=== PATIENT | female | born 1970 | race Caucasian/White ===

== ENCOUNTER 2021-01-19 22:32 | Emergency (ER) | payer BC, SELFPAY ==
[2021-01-19 22:56] VITALS: BP 136/88; PULSE 76; RESP 17; TEMP 36.4; O2SAT 97
--- NOTE | 2021-01-19 22:57 | ED.GENADULT ---
HPI - General Adult General Chief complaint: Unspecified Stated complaint: pain & red streak down arm after blood donation Source: patient and family History of Present Illness HPI narrative: this is a 50-year-old female presents after she donated blood yesterday the area of erythema that is in her right arm that is warm tender with no fever chills has a good brisk radial pulse on the right with no shortness of breath no chest pain. Onset (ago): day(s) Location: upper extremity ( red streak in right upper arm) Severity: mild Quality: burning Related Data Home Medications Medication Instructions Recorded Confirmed levothyroxine 100 mcg PO DAILY 01/19/21 01/19/21 progesterone micronized 100 mg PO DIRECTED 01/19/21 01/19/21 testosterone cypionate 200 mg IM DIRECTED 01/19/21 01/19/21 Allergies Allergy/AdvReac Type Severity Reaction Status Date / Time No Known Allergies Allergy Unknown Verified 01/19/21 22:54 Review of Systems Review of Systems: All systems reviewed & are unremarkable except as noted in HPI and below PMFSH Past Medical History Medical History Hypothyroidism (acquired) Exam Const: General: cooperative, healthy appearing, comfortable, no acute distress and well developed HENMT: Head: normal to inspection Ears: hearing grossly normal bilaterally General nose exam: Normal external nose present Face and sinus: normal facial exam and sinuses nontender Mouth: Yes Normal oral and palatal mucosa present Eyes: General: appearance normal, both eyes and all related structures Visual Rodriguez: normal visual rodriguez by confrontation EOM: EOMs intact bilaterally Neck: Neck: normal visual inspection, full ROM, no lymphadenopathy and no meningeal signs Chest: Chest palpation & inspection: normal inspection of the chest and normal palpation of entire chest wall Resp: Effort & Inspection: normal respiratory effort and able to speak in complete sentences Auscultation: clear to auscultation bilaterally Cardio: Jugular venous distension: no JVD Palpation: normal PMI Rate: regular rate Rhythm: regular rhythm GI: Inspection: normal to inspection Urinary Catheter: Urinary Catheter: patent and draining Back/Spine/Pelvis: Back: no CVA tenderness Skin: General skin exam: normal color and no rashes or lesions noted Other: area of erythema right upper arm Neuro: General: oriented to person, oriented to place, oriented to time and patient oriented x3 Course Course Emergency Course: patient doing well has an area of erythema and will obtain give the patient g of IM ceftriaxone Critical Care Time Critical Care Time Critical Care Time: No Discharge Plan Discharge Clinical Impression: Cellulitis Qualifiers: Site of cellulitis: extremity Site of cellulitis of extremity: upper extremity Laterality: right Qualified Code(s): L03.113 - Cellulitis of right upper limb Patient Disposition: Home, Self-Care Condition: Stable Instructions: Antibiotic Form, Cellulitis (ED) Additional Instructions: take medicine as prescribed, can use Tylenol or Motrin for pain inflammation as well as warm compress to affected area, follow primary care physician if symptoms persist or worsen. Prescriptions: New amoxicillin-pot clavulanate [Augmentin] 875-125 mg tablet 1 tablet PO Q12H Qty: 20 RF: 0 No Action levothyroxine 100 mcg tablet 100 mcg PO DAILY RF: 0 testosterone cypionate 200 mg/mL oil 200 mg IM DIRECTED RF: 0 progesterone micronized 100 mg capsule 100 mg PO DIRECTED RF: 0 Follow-up/Referrals: Markus Cueva MD [Primary Care Provider] - Time of Disposition: 23:02
[2021-01-19] MEDS: cefTRIAXone 1 GM VIAL IM (23:13)
[2021-01-19] MEDS: LIDOCAINE HCL 1% LOCAL INJ 20 ML VIAL (23:17)
[2021-01-19 23:40] VITALS: BP 97/68; PULSE 62; RESP 17; O2SAT 98
== END 2021-01-19 23:42 | disposition home or self-care (01) ==
PROVIDERS: Emergency Provider Emergency Medicine; PCP Internal Medicine
DX: L03.113 Cellulitis of right upper limb (principal)
CPT/HCPCS: 96372; 99283; J0696

== ENCOUNTER 2022-10-21 21:55 | Emergency (ER) | payer BC, SELFPAY ==
[2022-10-21 21:55] VITALS: BP 131/88; PULSE 81; RESP 14; TEMP 36.8; O2SAT 98
--- NOTE | 2022-10-21 22:02 | ED.ANIMALBIT ---
HPI - Animal Bite General Chief Complaint: Animal Bite Stated Complaint: cat bite to right hand Time Seen by Provider: 10/21/22 22:02 Source: patient and RN notes reviewed Mode of arrival: ambulatory Limitations: no limitations History of Present Illness complaint: animal bite Onset (ago): hour(s) (7) Animal: cat Description of animal: household pet Mechanism: bite Location - Extremities: Right: hand Pain description: dull Severity scale (1-10): 4 Context: playing with animal Associated symptoms: none Treatments prior to arrival: irrigation and antibiotic ointment Related Data Patient tetanus UTD: Yes Home Medications Medication Instructions Recorded Confirmed thyroid (pork) 120 mg tablet 120 mg PO DAILY 03/18/22 10/21/22 ([place] Thyroid) Allergies Allergy/AdvReac Type Severity Reaction Status Date / Time No Known Allergies Allergy Unknown Verified 05/06/22 11:26 Review of Systems Review of Systems: All systems reviewed & are unremarkable except as noted in HPI and below PMFSH Past Medical History Medical History Gestational diabetes Hypothyroidism (acquired) [place] thyroid & adrenal gland RX MEDS Screening mammogram for breast cancer Surgical History Surgical History History of hysteroscopy (~02/19/99) DX HSCOPE, POLYPECTOMY, D&C, DX LAP, ADHESIOLYSIS, ABLATION OF ENDOMETRIOSIS, RIGHT OVARIAN -CYSTECTOMY & CHROMOPERTUBATION - infertility, endometriosis, pelvic endometriosis, right ovarian cyst - corpus luteum ruptured - right ovary History of hysteroscopy (06/07/09) HSCOPE, D&C, MULTIPLE POLYPECTOMY - benign endometrial polyps History of hysteroscopy (06/30/11) NOVASURE ENDOMETRIAL ABLATION HSCOPE D&C - benign Family History Family History Mother Heart disease Hypertension Father Hypertension Grandparent Diabetes mellitus Social History Social History Smoking status: Never smoker Alcohol intake: current Alcohol use details: 2-3 month Substance use: never Substance use type: does not use Living arrangements: other Additional living arrangements comments: Occupation/Education: occupation Additional occupation/education comments: court worker Gender identity (if verbalized by the patient): Female Sexual Orientation (if Verbalized by the Patient): Straight or Heterosexual Exam Const: General: healthy appearing, no acute distress and alert Nutritional Appearance: well nourished Orientation/consciousness: patient oriented x3 Limitations: no limitations HENMT: Head: normal to inspection Ears: external ears normal Face/Nose/Sinus: Normal external nose present Face and sinus: normal facial exam Mouth: Yes moist mucous membranes Eyes: Conjunctivae: conjunctivae normal Pupils: Equal, round and reactive pupils present EOM: EOMs intact bilaterally Neck: Neck: normal visual inspection Resp: Effort & Inspection: normal respiratory effort Auscultation: clear to auscultation bilaterally Cardio: Rate: regular rate Rhythm: regular rhythm GI: GI Palp: Yes Soft to palpation and No Tenderness to palpation present (GI) Auscultation: normal bowel sounds Back/Spine/Pelvis: Cervical Spine: cervical ROM normal Thoracic/Lumbar Spine: thoraco-lumbar ROM normal Skin: General skin exam: normal color Wounds: wounds noted (3 small puncture wounds at the base of the right thumb on the dorsal aspect) puncture wound right thumb with surrounding erythema Neuro: General: patient oriented x3, moves all extremities, no focal motor deficits and CN's II-XI intact bilaterally Speech: normal speech Gait exam (Neuro): Normal gait present MDM - Animal Bite Differential Diagnosis Differential diagnosis: Likely cat bite and other ( Bartonella, MRSA) Discharge Carie
--- NOTE | 2022-10-21 22:07 | PC.NURSE ---
Assisted Dr. Iqbal w/ initial pt eval
[2022-10-21] MEDS: AZITHROMYCIN 250 MG TABLET 500 MG PO (22:18)
--- NOTE | 2022-10-21 22:35 | PC.NURSE ---
[id number] typewriter faxed animal bite report to [facility].
== END 2022-10-21 22:25 | disposition home or self-care (01) ==
LOC: CHSED 22:16
PROVIDERS: Emergency Provider Emergency Medicine; PCP Internal Medicine
DX: S61.451A Open bite of right hand, initial encounter (principal); E03.9 Hypothyroidism, unspecified; W55.01XA Bitten by cat, initial encounter
CPT/HCPCS: 99283; A9270

== ENCOUNTER 2024-05-01 03:39 | Emergency (ER) | payer OTHER, SELFPAY ==
[2024-05-01] VITALS (43 sets, daily range): BP systolic 93–117; BP diastolic 49–82; PULSE 32–82; RESP 12–32; TEMP 36.1–36.8; O2SAT 91–100
--- NOTE | ~2024-05-01 | CT_ITS ---
CLINICAL INDICATION: Lower right-sided abdominal pain COMPARISON: None. TECHNIQUE: Multiple contiguous axial images of the abdomen and pelvis were performed following the ad ministration of with 100 mL Omnipaque-350 intravenous contrast The dose-length product (DLP) was 468.09 mGy-cm. Automated exposure control and iterative reconstruction technique were employed. FINDINGS/OBSERVATIONS: Visualized lower thorax: The bilateral lung bases are clear. The heart is of normal size, without pericardial effusion. Small hiatal hernia is present. Liver: The liver demonstrates homogeneous enhancement and is not enlarged measuring 17 cm in longitudinal di mension. Gallbladder and biliary system: The gallbladder is only minimally distended, and otherwise unremarkable. Pancreas: The pancreas enhances homogeneously without ductal dilatation. Spleen: The spleen enhances homogeneously and is not enlarged measuring 8 cm in longitudinal dimension. Kidneys: The bilateral kidneys enhance symmetrically without hydronephrosis or renal calculi. Adrenal glands: Unremarkable. Gastrointestinal tract: Mural thickening and edema within the entirety of the colon, to the level of the rectum with surround ing inflammatory change for which a near complete Cardoso colitis is suspected. Appendix: The air-filled appendix is of normal caliber (axial series, images 133 through 148) Vasculature: Unremarkable. Lymph nodes: No pathologically enlarged or morphologically suspicious lymph nodes within the retroperitoneum or at the root of the mesentery. Pelvic structures: The bladder is only minimally distended, and otherwise unremarkable. The uterus is anteverted and anteflexed. Multiple rounded foci of decreased attenuation within the ut erus for which fibroids are suspected. Body wall and musculoskeletal: Small fat-containing umbilical hernia. Degenerative disease at the level of L5/S1 with osteophyte formation and disc space bulging. No acute compression fractures are appreciated. IMPRESSION: Findings suggesting a near complete pancolitis, as detailed above. Multiple rounded lucencies within the uterus for which fibroids are suspected. Follow-up pelvic ultra sound is recommended when the patient is clinically able for confirmation. Reviewed, dictated and finalized at location A. IMPRESSION: Findings suggesting a near complete pancolitis, as detailed above. Multiple rounded lucencies within the uterus for which fibroids are suspected. Follow-up pelvic ultrasound is recommended when the patient is clinically able for confirmation.
--- NOTE | ~2024-05-01 | CT_ITS ---
History: Unresponsiveness, now resolved. PROCEDURE: CT head without contrast. COMPARISON: Reference is made to CT examination of the sinuses dated 01/06/2011 TECHNIQUE: Axial imaging of the head performed from the skull base to the vertex without IV contrast. Sagittal a nd coronal reformations obtained. DLP: 605 mGy-cm FINDINGS: The ventricles are normal in size, shape and position. There is no mass, mass effect or midline shift. There is no abnormal extra-axial fluid collection or intracranial hemorrhage. Redemonstration of moderate inflammatory change within the bilateral maxillary sinuses, unchanged fro 2010. Remaining paranasal sinuses are otherwise clear. The mastoid air cells are well aerated. No acute displaced fractures within the overlying cranium. Impression: No acute intracranial hemorrhage or suspicious mass effect. Inflammatory sinus disease, unchanged from 2010. Reviewed, dictated and finalized at location A. Impression: No acute intracranial hemorrhage or suspicious mass effect. Inflammatory sinus disease, unchanged from 2010.
--- OUTSIDE RECORDS SUMMARY | 2024-05-01 03:42 | XMS_ITS | Referral Summary ---
Author Organization [facility] [facility] Address [address] [place] [id number] Care Team Providers Care Customer Service Dispatcher Name Role Phone Markus Cueva MD Primary Care Provider [phone] Allergies Active Allergy Reactions Criticality Noted Date Comments Hydrocodone Stomach upset Low 11/30/2014 Stomach/GI Upset Medications levothyroxine sodium (TIROSINT) 13 mcg capsule take 1 capsule by oral route every day 0 0 03/04/2016 Active estradioL (Estrace) 0.01 % (0.1 mg/gram) vaginal cream Estrace 0.01% (0.1 mg/gram) vaginal cream Active progesterone (PROMETRIUM) 100 mg capsule 07/17/2020 Acti ve Active Problems Problem Noted Date Diagnosed Date Screening for colon cancer 09/30/2021 Overview (09/30/2021): Added automatically from request for surgery [id number] Irregular periods 07/19/2020 Social History Tobacco Use Types Packs/Day Years Used Date Smoking Tobacco: Unknown Tobacco Cessation:Counseling Given: Not Answered Alcohol Use Standard Drinks/Week Comments No 0 (1 standard drink = 0.6 oz pur e alcohol) Comments Unknown Sex and Gender Information Value Date Recorded Sex Assigned at Not on file 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 Gender Identity Not on file Sexual Orientation Not on file Last Filed Vital Signs Vital Sign Reading Time Taken Comments Blood Pressure 111/61 10/17/2021 10:03 AM CDT Pulse 55 10/17/2021 10:03 AM CDT Temperature 36.6 C (97.8 F) 10/17/2021 10:03 AM CDT Respiratory Rate 16 10/17/2021 10:03 AM CDT Oxygen Saturation 100% 10/17/2021 10:03 AM CDT Inhaled Oxygen Concentration - - Weight 68 kg (150 lb) 10/17/2021 7:22 AM CDT Height 160 cm (5' 3 ) 10/17/2021 7:22 AM CDT Body Mass Index 26.57 10/17/2021 7:22 AM CDT Plan of Treatment Not on file Procedures Procedure Name Priority Date/Time Associated Diagnosis Comments COLONOSCOPY 10/17/2021 7:16 AM CDT from Last 3 Months or Most Recently Relevant to Health Maintenance Results * COLONOSCOPY (10/17/2021 7:16 AM CDT) Anatomical Region Laterality Modality Other Narrative Procedure Note Munir Mckeon MD - 10/17/2021 7:16 AM CDT Center Patient Name: Keesha Hoskins Procedure Date: 10/17/2021 7:16 AM Date of : 1970 Admit Type: Outpatient Age: 51 Gender: Female Attending MD: Munir Mckeon M.D. Room: [facility] ENDOSCOPY ROOM 1 Note Status: Finalized Patient Profile: This is a 51 year old female no pmhx here forinitial colonoscopy. no family hx of colon cancer Procedure: Colonoscopy Indications: Screening for colorectal malignant neoplasm, Thisis the patient's first colonoscopy Referring MD: Markus Cueva M.D. Providers: Munir Mckeon M.D. Impression: - Perianal skin tags found on perianal exam. - One 4 mm polyp in the rectum, removed with a cold snare. Resected and retrieved. - Internal hemorrhoids. Recommendation: - Patient has a contact number available for emergencies. The signs and symptoms of potential delayed complications were discussed with thepatient. Return to normal activities tomorrow. Written discharge instructions were provided to thepatient. - Discharge patient to home (with escort). - High fiber diet. - Use original regular Metamucil one teaspoon POTID. Can also use over the counter anusol or preparationH for hemorrhoids as needed - Await pathology results. - Repeat colonoscopy in 7-10 years for surveillance based on pathology results. - Return to primary care physician as previously scheduled. Medicines: Monitored Anesthesia Care Complications: No immediate complications. Estimated Blood Loss: Estimated blood loss was minimal. Procedure: Pre-Anesthesia Assessment: - Prior to the procedure, a History and Physicalwas performed, and patient medications and allergieswere reviewed. The patient is competent. The risks and benefits of the procedure and the sedation optionsand risks were discussed with the patient. Allquestions were answered and informed consent was obtained. Patient identification and proposed procedure were verified by the physician, the nurse and the anesthesiologist in the endoscopy suite. MentalStatus Examination: normal. Prophylactic Antibiotics: The patient does not require prophylactic antibiotics. Prior Anticoagulants: The patient has taken no anticoagulant or antiplatelet agents. ASA Grade Assessment: II - A patient with mild systemicdisease. After reviewing the risks and benefits, the patient was deemed in satisfactory condition to undergo the procedure. The anesthesia plan was to use monitored anesthesia care (MAC). Immediately prior to administration of medications, the patient was re-assessed for adequacy to receive sedatives. The heart rate, respiratory rate, oxygen saturations, blood pressure, adequacy of pulmonary ventilation,and response to care were monitored throughout the procedure. The physical status of the patient was re-assessed after the procedure. The benefits, risks and alternatives of theprocedure and sedation were discussed and informed consentwas obtained. All questions were answered. Please referto the signed informed consent document in the medical record. The bowel preparation used was Miralax and bisacodyl tablets via split dose instruction. The scope was passed under direct vision. TheColonoscope [id number] was introduced through the anus and advanced to the the cecum, identified by appendiceal orifice and ileocecal valve. The colonoscopy was somewhat difficult due tosignificant looping. Successful completion of the procedure was aided by applying abdominal pressure. The patient tolerated the procedure well. The quality of thebowel preparation was adequate. Bowel prep wasadministered using a split dose. Findings: Skin tags were found on perianal exam. A 4 mm polyp was found in the rectum. The polyp was Parisclassification IIa (superficial, elevated). The polyp was removed with a cold snare. Resection and retrieval were complete. Internal hemorrhoids were found during retroflexion. Munir Mckeon M.D. 10/17/2021 9:37:07 AM Number of Addenda: 0 Note Initiated On: 10/17/2021 7:16 AM Procedure Code(s): --- Professional --- 04349, Colonoscopy, flexible; with removal of tumor(s), polyp(s), or other lesion(s) by snare technique Diagnosis Code(s): --- Professional --- Z12.11, Encounter for screening for malignant neoplasm of colon D12.8, Benign neoplasm of rectum K64.8, Other hemorrhoids K64.4, Residual hemorrhoidal skin tags CPT copyright 2020 [employer]. All rights reserved. The codes documented in this report are preliminary and upon production miner reviewmay be revised to meet current compliance requirements. Recognized by the [employer] for promoting quality in endoscopy us Munir Mckeon MD ENDOSCOPY PROCEDURES Final Resul t from Last 3 Months or Most Recently Relevant to Health Maintenance Insurance [facility] Advance Directives For more information, please contact: [phone] * Full Code (Latest Code Status on File) Date Activated Date Inactivated Comments 10/17/2021 7:27 AM 10/17/2021 2:29 PM * Full Code Date Activated Date Inactivated Comments 10/17/2021 7:27 AM 10/17/2021 7:27 AM Care Teams Customer Service Dispatcher Relationship Specialty Start Date End Date Markus Cueva MD PCP - General Internal Medicine 07/19/20
--- OUTSIDE RECORDS SUMMARY | 2024-05-01 03:43 | XMS_ITS | Clinical Summary ---
Author Organization [facility] [place] [facility] Address [address] [place] [id number] Care Team Providers Care Legal Officer Name Role Phone Markus Cueva MD Primary Care Provider [phone] Allergies Active Allergy Reactions Criticality Noted Date [...] (09/30/2021): Added automatically from request for surgery [id number] Irregular periods 07/19/2020 Surgical History Surgery Date Site/Laterality Comments TONSILLECTOMY Tonsillectomy COLONOSCOPY 10/17/2021 Medical History Medical History Date Comments Hx Other Medical kidney stones Disorder of thyroid Thyroid dise ase Hx Other Medical right foot nov 2014 Hx Other Medical Left foot-bone spurs Jan 2013 Hx Other Medical Diastesis repai r Nov 2014 Hx Other Medical reproductive is sues 1999 Family History Medical History Relation Name Comments Arthritis Other 1 Family history of Arthritis; Gout Other 2 Family history of Gout; Hypertension Other 3 Family history of Hypertension; Diabetes type II Other 4 Family hist ory of Diabetes mellitus type 2; Heart disease Other 5 Family history of Heart disease; Relation Name Status Comments Other 1 Other 2 Other 3 Other 4 Other 5 Social History Tobacco Use Types Packs/Day Years Used Date Smoking Tobacco: Unknown Tobacco Cessation:Counseling Given: Not Answered Alcohol Use Standard Drinks/Week Comments No 0 (1 standard drink = 0.6 oz pur e alcohol) Comments Unknown Sex and Gender Information Value Date Recorded Sex Assigned at Not on file 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 Gender Identity Not on file Sexual Orientation Not on file Obstetrics History Last Filed Vital Signs Vital Sign Reading [...] 10/17/2021 7:22 AM CDT Plan of Treatment Health Maintenance Due Date Last Done Comments Breast Cancer Screening-Mammogram 1970 Cervical Cancer Screening 1970 Depression Screening 1970 Hepatitis C Screening 1970 Hepatitis B Screening 1988 Regular Well Visit/Exam 18-64 1988 Zoster Vaccine (1 of 2) 2020 Influenza Vaccine (#1) 2023 10/21/2018 DTaP/Tdap/Td Vaccine (2 - Td or Tdap) 10/21/2028 10/21/2018 Colon Cancer Screening-Colonoscopy 10/18/20312021 Pneumococcal vaccine <65 Aged Out No longer eligible based on patient's age to complete this topic Procedures Procedure Name Priority Date/Time Associated Diagnosis Comments COLONOSCOPY 10/17/2021 7:16 AM CDT from Last 3 Months or Most Recently Relevant to Health Maintenance Results * COLONOSCOPY (10/17/2021 7:16 AM CDT) Anatomical Region Laterality Modality Other Narrative Procedure Note Munir Mckeon MD - 10/17/2021 7:16 AM CDT [facility] Center Patient Name: Keesha Bustillo Procedure Date: 10/17/2021 7:16 AM Date of : 1970 Admit Type: Outpatient Age: 51 Gender: Female Attending MD: Munir Mckeon M.D. Room: [facility] RO[facility] 1 Note Status: Finalized Patient [...] scope was passed under direct vision. TheColonoscope [id number] was introduced through the anus and advanced [...] 7:16 AM Procedure Code(s): --- Professional --- 87187, Colonoscopy, flexible; with removal of tumor(s), polyp(s), or other lesion(s) by snare technique Diagnosis Code(s): --- Professional --- Z12.11, Encounter for screening for malignant neoplasm of colon D12.8, Benign neoplasm of rectum K64.8, Other hemorrhoids K64.4, Residual hemorrhoidal skin tags CPT copyright 2020 [employer]. All rights reserved. The codes documented in this report are preliminary and upon cardiograph operator reviewmay be revised to meet current compliance requirements. Recognized by the [employer] for promoting quality in endoscopy Munir Mckeon MD ENDOSCOPY PROCEDURES Final Resul t from Last 3 Months or Most Recently Relevant to Health Maintenance Insurance [facility] Advance Directives For more information, please contact: [phone] * Full Code (Latest Code Status on File) Date Activated Date Inactivated Comments 10/17/2021 7:27 AM 10/17/2021 2:29 PM * Full Code Date Activated Date Inactivated Comments 10/17/2021 7:27 AM 10/17/2021 7:27 AM Care Teams Legal Officer Relationship Specialty Start Date End Date Markus Cueva MD PCP - General Internal Medicine 07/19/20
--- NOTE | 2024-05-01 03:52 | ED.ABDPAIN ---
HPI - Abdominal Pain General Chief Complaint: Abdominal Pain <Michael Mccray MD - Last Filed: 05/01/24 06:16> Stated Complaint: Belly Pain <Michael Mccray MD - Last Filed: 05/01/24 06:16> Time Seen by Provider: 05/01/24 03:46 <Michael Mccray MD - Last Filed: 05/01/24 06:16> Source: patient and family <Michael Mccray MD - Last Filed: 05/01/24 06:16> Mode of arrival: ambulatory <Michael Mccray MD - Last Filed: 05/01/24 06:16> Limitations: no limitations <Michael Mccray MD - Last Filed: 05/01/24 06:16> History of Present Illness HPI narrative: this is a 53-year-old female with history of hypothyroidism presents with abdominal pain localizing to the right lower quadrant that started around 12 30 this this morning with associated nausea with currently no vomiting, there is no diarrhea or constipation no fever chills no chest pain or shortness of breath. <Michael Mccray MD - Last Filed: 05/01/24 06:16> MD elicited complaint: abdominal pain <Michael Mccray MD - Last Filed: 05/01/24 06:16> Onset (ago): hour(s) <Michael Mccray MD - Last Filed: 05/01/24 06:16> Pain Consistency: constant <Michael Mccray MD - Last Filed: 05/01/24 06:16> Location: RLQ <Michael Mccray MD - Last Filed: 05/01/24 06:16> Severity: mild <Michael Mccray MD - Last Filed: 05/01/24 06:16> Quality: aching <Michael Mccray MD - Last Filed: 05/01/24 06:16> Radiation: RLQ <Michael Mccray MD - Last Filed: 05/01/24 06:16> Migration to: no migration <Michael Mccray MD - Last Filed: 05/01/24 06:16> Exacerbating factors: nothing <Michael Mccray MD - Last Filed: 05/01/24 06:16> Relieving factors: nothing <Michael Mccray MD - Last Filed: 05/01/24 06:16> Associated symptoms: nausea <Michael Mccray MD - Last Filed: 05/01/24 06:16> Related Data Home Medications: Home Medications ?Medication ?Instructions ?Recorded ?Confirmed ?Last Taken ?Type thyroid (pork) 120 mg tablet 60 mg PO DAILY 05/11/23 05/01/24 Unknown History ([place] Thyroid) <Michael Mccray MD - Last Filed: 05/01/24 06:16> Allergies/Adverse Reactions: Allergies Allergy/AdvReac Type Severity Reaction Status Date / Time No Known Allergies Allergy Unknown Verified 05/01/24 03:48 <Michael Mccray MD - Last Filed: 05/01/24 06:16> Review of Systems Review of Systems: All systems reviewed & are unremarkable except as noted in HPI and below <Michael Mccray MD - Last Filed: 05/01/24 06:16> PMFSH Past Medical History Medical History: Medical History Screening mammogram for breast cancer Gestational diabetes Hypothyroidism (acquired) Conesus's thyroid & adrenal gland RX MEDS <Michael Mccray MD - Last Filed: 05/01/24 06:16> Surgical History Surgical History: Surgical History History of hysteroscopy (06/30/11) NOVASURE ENDOMETRIAL ABLATION HSCOPE D&C - benign History of hysteroscopy (06/07/09) HSCOPE, D&C, MULTIPLE POLYPECTOMY - benign endometrial polyps History of hysteroscopy (~02/19/99) DX HSCOPE, POLYPECTOMY, D&C, DX LAP, ADHESIOLYSIS, ABLATION OF ENDOMETRIOSIS, RIGHT OVARIAN -CYSTECTOMY & CHROMOPERTUBATION - infertility, endometriosis, pelvic endometriosis, right ovarian cyst - corpus luteum ruptured - right ovary <Michael Mccray MD - Last Filed: 05/01/24 06:16> Family History Family History: Family History Mother Heart disease Hypertension Father Hypertension Grandparent Diabetes mellitus <Michael Mccray MD - Last Filed: 05/01/24 06:16> Social History Social History: Social History Smoking status: Never smoker Second hand tobacco smoke exposure: No Alcohol intake: current Alcohol use details: 2-3 month Substance use: never Substance use type: does not use Do You Feel Safe in your Home?: Yes Lack of Transportation: No Lack of Food: Never True Current Housing: I Have Housing Concerned About Future Housing: No Difficulty Paying Gas/Electric Bills: No Difficulty Paying for Meds: No Currently Unemployed: No Education: Trade/Vocational Certificate Difficulty w/ Childcare or Family Care: No Living arrangements: other Additional living arrangements comments: Occupation/Education: 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 Gender identity (if verbalized by the patient): Female Sexual Orientation (if Verbalized by the Patient): Straight or Heterosexual <Michael Mccray MD - Last Filed: 05/01/24 06:16> Exam Const: General: no acute distress and ill appearing <Michael Mccray MD - Last Filed: 05/01/24 06:16> Nutritional Appearance: well nourished <Michael Mccray MD - Last Filed: 05/01/24 06:16> Orientation/consciousness: patient oriented x3 <Michael Mccray MD - Last Filed: 05/01/24 06:16> Limitations: no limitations <Michael Mccray MD - Last Filed: 05/01/24 06:16> HENMT: Head: normal to inspection <Michael Mccray MD - Last Filed: 05/01/24 06:16> Neck: Neck: normal visual inspection, no lymphadenopathy and no meningeal signs <Michael Mccray MD - Last Filed: 05/01/24 06:16> Chest: Chest palpation & inspection: normal inspection of the chest <Michael Mccray MD - Last Filed: 05/01/24 06:16> Resp: Effort & Inspection: normal respiratory effort <Michael Mccray MD - Last Filed: 05/01/24 06:16> Auscultation: clear to auscultation bilaterally <Michael Mccray MD - Last Filed: 05/01/24 06:16> Cardio: Rate: regular rate <Michael Mccray MD - Last Filed: 05/01/24 06:16> Rhythm: regular rhythm <Michael Mccray MD - Last Filed: 05/01/24 06:16> GI: GI Palp: Yes Soft to palpation and Yes Tenderness to palpation present (GI) <Michael Mccray MD - Last Filed: 05/01/24 06:16> Auscultation: normal bowel sounds <Michael Mccray MD - Last Filed: 05/01/24 06:16> : General: Yes bladder normal to palpation <Michael Mccray MD - Last Filed: 05/01/24 06:16> Urinary Catheter: Urinary Catheter: patent and draining <MD Jackelin Clay Last Filed: 05/01/24 06:16> Back/Spine/Pelvis: Back: no CVA tenderness <Michael Mccray MD - Last Filed: 05/01/24 06:16> Skin: General skin exam: normal color <Michael Mccray MD - Last Filed: 05/01/24 06:16> Rashes: no rashes <Michael Mccray MD - Last Filed: 05/01/24 06:16> Wounds: no wounds <Michael Mccray MD - Last Filed: 05/01/24 06:16> Neuro: General: patient oriented x3, moves all extremities, no meningeal signs and no focal motor deficits <MD Jackelin Clay Last Filed: 05/01/24 06:16> Extrem: General: normal to inspection and no pedal edema <Michael Mccray MD - Last Filed: 05/01/24 06:16> Course Course Emergency Course: IV started and IV fluids administered, patient received IV Zofran. CT scan abdomen pelvis with contrast performed Urinalysis and blood work performed and reviewed with patient and family. Patient had been had a episode of bradycardia and diaphoresis EKG was performed which shows a sinus bradycardia of rate of [address] or T changes. Patient is continued to feel nauseated and not a dose of Zofran was administered. <MD Jackelin Clay Last Filed: 05/01/24 06:16> Vital Signs Vital signs: Vital Signs Temperature 36.1 C L 05/01/24 03:39 Pulse Rate 52 L 05/01/24 03:39 Respiratory Rate 14 05/01/24 03:39 Blood Pressure 104/49 L 05/01/24 03:39 Pulse Oximetry 98 05/01/24 03:39 Oxygen Delivery Room Air 05/01/24 03:39 Temperature 36.7 C 05/01/24 08:00 Pulse Rate 72 05/01/24 09:01 Respiratory Rate 15 05/01/24 09:01 Blood Pressure 102/66 05/01/24 09:00 Pulse Oximetry 97 05/01/24 09:01 Oxygen Delivery Nasal Cannula 05/01/24 07:49 Oxygen Flow Rate 2 05/01/24 07:49 <Michael Mccray MD - Last Filed: 05/01/24 06:16> Vital Signs Temperature 36.1 C L 05/01/24 03:39 Pulse Rate 52 L 05/01/24 03:39 Respiratory Rate 14 05/01/24 03:39 Blood Pressure 104/49 L 05/01/24 03:39 Pulse Oximetry 98 05/01/24 03:39 Oxygen Delivery Room Air 05/01/24 03:39 Temperature 36.7 C 05/01/24 08:00 Pulse Rate 72 05/01/24 09:01 Respiratory Rate 15 05/01/24 09:01 Blood Pressure 102/66 05/01/24 09:00 Pulse Oximetry 97 05/01/24 09:01 Oxygen Delivery Nasal Cannula 05/01/24 07:49 Oxygen Flow Rate 2 05/01/24 07:49 <Chauncey Cheung MD - Last Filed: 05/01/24 09:30> MDM - Abdominal Pain MDM Narrative Medical decision making narrative: 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 We are transferring the patient at this time for further GI workup. I have taken over care of this patient at this time. I reviewed the chart. I reviewed labs and CT scans. Medications given. We will add maintenance fluid. Patient had a total of 3 vasovagal events after nausea. Patient accepted at [facility] for further workup and evaluation. <Chauncey Cheung MD - Last Filed: 05/01/24 09:30> Lab Data Result diagrams: 05/01/24 04:50 05/01/24 04:50 <Michael Mccray MD - Last Filed: 05/01/24 06:16> Labs: Lab Results 05/01/24 05/01/24 05/01/24 Range/Units 03:50 04:50 04:51 WBC 5.5 (4.8-10.8) K/mm3 RBC 3.71 L (4.20-5.40) M/mm3 Hgb 11.5 L (12.0-15.0) g/dL Hct 34.6 L (35.0-49.0) % MCV 93.3 (78.0-102.0) fL MCH 31.0 (27.0-31.0) pg MCHC 33.2 (32-36) g/dL RDW 12.2 (11.6-14.4) % Plt Count 279 (150-420) K/mm3 MPV 9.3 (9.2-11.8) fl Immature Gran % (Auto) 0.2 H (0.0-0.0) % Neut % (Auto) 77.0 H (50.0-70.0) % Lymph % (Auto) 15.0 L (18.0-42.0) % [place] % (Auto) 6.4 (2.0-11.0) % Eos % (Auto) 0.9 L (1.0-6.0) % Baso % (Auto) 0.5 (0.0-1.0) % Lymph # (Auto) 0.82 L (1.10-4.50) K/mm3 [place] # (Auto) 0.35 (0.10-0.90) K/mm3 Eos # (Auto) 0.05 (0.02-0.50) K/mm3 Baso # (Auto) 0.03 (0.00-0.10) K/mm3 Abs Immat Gran (auto) 0.01 H (0.00-0.00) K/mm3 Absolute Neuts (auto) 4.21 (1.70-7.20) K/mm3 Absolute Nucleated RBC 0.00 (0.00-0.00) K/mm3 Nucleated RBC % 0.0 (0-0.0) % PT 10.3 (9.50-12.1) Seconds INR 0.9 APTT 25.6 (23.9-30.70) Sec D-Dimer (0.19-0.50) mg/L Sodium 142 (136-145) mmol/L Potassium 3.9 (3.5-5.1) mmol/L Chloride 107 (98-108) mmol/L Carbon Dioxide 26 (21-32) mmol/L Anion Gap 9 (4-12) mmol/L BUN 17 (7-18) mg/dL Creatinine 0.95 (0.55-1.02) mg/dL Estim Creat Clear Calc 3 ml/min Estimated GFR > 60 (59 - ) Glucose 112 H (70-99) mg/dL Calculated Osmolality 296 H (285-295) mOsm/kg Lactic Acid 1.6 (0.4-2.0) mmol/L Calcium 8.2 L (8.5-10.1) mg/dL Total Bilirubin 0.2 (0.00-1.00) mg/dL AST 22 (15-37) U/L ALT 27 (14-59) U/L Alkaline Phosphatase 61 (46-116) U/L Troponin I (0.00-60.4) ng/L Total Protein 6.6 (6.4-8.2) g/dL Albumin 3.2 L (3.4-5.0) g/dL Lipase 55 (16-77) U/L TSH (0.36-3.74) uIU/mL Urine Color Light yellow (Yellow) Urine Appearance Clear (Clear) Urine pH 6.5 (5.0-8.0) Ur Specific [place] 1.010 (1.010-1.020) Urine Protein Negative (Negative) Urine Glucose (UA) Negative (Negative) Urine Ketones 3+ H (Negative) Ur Blood (Man) Negative (Negative) Urine Nitrate Negative (Negative) Urine Bilirubin Negative (Negative) Urine Urobilinogen 0.2 (0.2-1.0) mg/dL Leukocyte Esterase Rfl Negative (Negative) IZAIAH/UL Urine Test Negative Urine Opiates Screen (Negative) Urine Methadone Screen (Negative) Ur Barbiturates Screen (Negative) Ur Phencyclidine Scrn (Negative) Ur Amphetamine Screen (Negative) U Benzodiazepines Scrn (Negative) Urine Cocaine Screen (Negative) U Cannabinoids Screen (Negative) Influenza A (RT-PCR) Negative (Negative) Influenza B (RT-PCR) Negative (Negative) RSV (RT-PCR) Negative (Negative) SARS-CoV-2 RNA (RT-PCR) Negative (Negative) 05/01/24 05/01/24 Range/Units 06:08 07:10 WBC (4.8-10.8) K/mm3 RBC (4.20-5.40) M/mm3 Hgb (12.0-15.0) g/dL Hct (35.0-49.0) % MCV (78.0-102.0) fL MCH (27.0-31.0) pg MCHC (32-36) g/dL RDW (11.6-14.4) % Plt Count (150-420) K/mm3 MPV (9.2-11.8) fl Immature Gran % (Auto) (0.0-0.0) % Neut % (Auto) (50.0-70.0) % Lymph % (Auto) (18.0-42.0) % [place] % (Auto) (2.0-11.0) % Eos % (Auto) (1.0-6.0) % Baso % (Auto) (0.0-1.0) % Lymph # (Auto) (1.10-4.50) K/mm3 [place] # (Auto) (0.10-0.90) K/mm3 Eos # (Auto) (0.02-0.50) K/mm3 Baso # (Auto) (0.00-0.10) K/mm3 Abs Immat Gran (auto) (0.00-0.00) K/mm3 Absolute Neuts (auto) (1.70-7.20) K/mm3 Absolute Nucleated RBC (0.00-0.00) K/mm3 Nucleated RBC % (0-0.0) % PT (9.50-12.1) Seconds INR APTT (23.9-30.70) Sec D-Dimer 0.36 (0.19-0.50) mg/L Sodium (136-145) mmol/L Potassium (3.5-5.1) mmol/L Chloride (98-108) mmol/L Carbon Dioxide (21-32) mmol/L Anion Gap (4-12) mmol/L BUN (7-18) mg/dL Creatinine (0.55-1.02) mg/dL Estim Creat Clear Calc ml/min Estimated GFR (59 - ) Glucose (70-99) mg/dL Calculated Osmolality (285-295) mOsm/kg Lactic Acid (0.4-2.0) mmol/L Calcium (8.5-10.1) mg/dL Total Bilirubin (0.00-1.00) mg/dL AST (15-37) U/L ALT (14-59) U/L Alkaline Phosphatase (46-116) U/L Troponin I 8.1 (0.00-60.4) ng/L Total Protein (6.4-8.2) g/dL Albumin (3.4-5.0) g/dL Lipase (16-77) U/L TSH 1.22 (0.36-3.74) uIU/mL Urine Color (Yellow) Urine Appearance (Clear) Urine pH (5.0-8.0) Ur Specific [place] (1.010-1.020) Urine Protein (Negative) Urine Glucose (UA) (Negative) Urine Ketones (Negative) Ur Blood (Man) (Negative) Urine Nitrate (Negative) Urine Bilirubin (Negative) Urine Urobilinogen (0.2-1.0) mg/dL Leukocyte Esterase Rfl (Negative) IZAIAH/UL Urine Test Urine Opiates Screen Negative (Negative) Urine Methadone Screen Negative (Negative) Ur Barbiturates Screen Negative (Negative) Ur Phencyclidine Scrn Negative (Negative) Ur Amphetamine Screen Negative (Negative) U Benzodiazepines Scrn Negative (Negative) Urine Cocaine Screen Negative (Negative) U Cannabinoids Screen Negative (Negative) Influenza A (RT-PCR) (Negative) Influenza B (RT-PCR) (Negative) RSV (RT-PCR) (Negative) SARS-CoV-2 RNA (RT-PCR) (Negative) <Michael Mccray MD - Last Filed: 05/01/24 06:16> Lab Results 05/01/24 05/01/24 05/01/24 Range/Units 03:50 04:50 04:51 WBC 5.5 (4.8-10.8) K/mm3 RBC 3.71 L (4.20-5.40) M/mm3 Hgb 11.5 L (12.0-15.0) g/dL Hct 34.6 L (35.0-49.0) % MCV 93.3 (78.0-102.0) fL MCH 31.0 (27.0-31.0) pg MCHC 33.2 (32-36) g/dL RDW 12.2 (11.6-14.4) % Plt Count 279 (150-420) K/mm3 MPV 9.3 (9.2-11.8) fl Immature Gran % (Auto) 0.2 H (0.0-0.0) % Neut % (Auto) 77.0 H (50.0-70.0) % Lymph % (Auto) 15.0 L (18.0-42.0) % [place] % (Auto) 6.4 (2.0-11.0) % Eos % (Auto) 0.9 L (1.0-6.0) % Baso % (Auto) 0.5 (0.0-1.0) % Lymph # (Auto) 0.82 L (1.10-4.50) K/mm3 [place] # (Auto) 0.35 (0.10-0.90) K/mm3 Eos # (Auto) 0.05 (0.02-0.50) K/mm3 Baso # (Auto) 0.03 (0.00-0.10) K/mm3 Abs Immat Gran (auto) 0.01 H (0.00-0.00) K/mm3 Absolute Neuts (auto) 4.21 (1.70-7.20) K/mm3 Absolute Nucleated RBC 0.00 (0.00-0.00) K/mm3 Nucleated RBC % 0.0 (0-0.0) % PT 10.3 (9.50-12.1) Seconds INR 0.9 APTT 25.6 (23.9-30.70) Sec D-Dimer (0.19-0.50) mg/L Sodium 142 (136-145) mmol/L Potassium 3.9 (3.5-5.1) mmol/L Chloride 107 (98-108) mmol/L Carbon Dioxide 26 (21-32) mmol/L Anion Gap 9 (4-12) mmol/L BUN 17 (7-18) mg/dL Creatinine 0.95 (0.55-1.02) mg/dL Estim Creat Clear Calc 3 ml/min Estimated GFR > 60 (59 - ) Glucose 112 H (70-99) mg/dL Calculated Osmolality 296 H (285-295) mOsm/kg Lactic Acid 1.6 (0.4-2.0) mmol/L Calcium 8.2 L (8.5-10.1) mg/dL Total Bilirubin 0.2 (0.00-1.00) mg/dL AST 22 (15-37) U/L ALT 27 (14-59) U/L Alkaline Phosphatase 61 (46-116) U/L Troponin I (0.00-60.4) ng/L Total Protein 6.6 (6.4-8.2) g/dL Albumin 3.2 L (3.4-5.0) g/dL Lipase 55 (16-77) U/L TSH (0.36-3.74) uIU/mL Urine Color Light yellow (Yellow) Urine Appearance Clear (Clear) Urine pH 6.5 (5.0-8.0) Ur Specific [place] 1.010 (1.010-1.020) Urine Protein Negative (Negative) Urine Glucose (UA) Negative (Negative) Urine Ketones 3+ H (Negative) Ur Blood (Man) Negative (Negative) Urine Nitrate Negative (Negative) Urine Bilirubin Negative (Negative) Urine Urobilinogen 0.2 (0.2-1.0) mg/dL Leukocyte Esterase Rfl Negative (Negative) IZAIAH/UL Urine Test Negative Urine Opiates Screen (Negative) Urine Methadone Screen (Negative) Ur Barbiturates Screen (Negative) Ur Phencyclidine Scrn (Negative) Ur Amphetamine Screen (Negative) U Benzodiazepines Scrn (Negative) Urine Cocaine Screen (Negative) U Cannabinoids Screen (Negative) Influenza A (RT-PCR) Negative (Negative) Influenza B (RT-PCR) Negative (Negative) RSV (RT-PCR) Negative (Negative) SARS-CoV-2 RNA (RT-PCR) Negative (Negative) 05/01/24 05/01/24 Range/Units 06:08 07:10 WBC (4.8-10.8) K/mm3 RBC (4.20-5.40) M/mm3 Hgb (12.0-15.0) g/dL Hct (35.0-49.0) % MCV (78.0-102.0) fL MCH (27.0-31.0) pg MCHC (32-36) g/dL RDW (11.6-14.4) % Plt Count (150-420) K/mm3 MPV (9.2-11.8) fl Immature Gran % (Auto) (0.0-0.0) % Neut % (Auto) (50.0-70.0) % Lymph % (Auto) (18.0-42.0) % [place] % (Auto) (2.0-11.0) % Eos % (Auto) (1.0-6.0) % Baso % (Auto) (0.0-1.0) % Lymph # (Auto) (1.10-4.50) K/mm3 [place] # (Auto) (0.10-0.90) K/mm3 Eos # (Auto) (0.02-0.50) K/mm3 Baso # (Auto) (0.00-0.10) K/mm3 Abs Immat Gran (auto) (0.00-0.00) K/mm3 Absolute Neuts (auto) (1.70-7.20) K/mm3 Absolute Nucleated RBC (0.00-0.00) K/mm3 Nucleated RBC % (0-0.0) % PT (9.50-12.1) Seconds INR APTT (23.9-30.70) Sec D-Dimer 0.36 (0.19-0.50) mg/L Sodium (136-145) mmol/L Potassium (3.5-5.1) mmol/L Chloride (98-108) mmol/L Carbon Dioxide (21-32) mmol/L Anion Gap (4-12) mmol/L BUN (7-18) mg/dL Creatinine (0.55-1.02) mg/dL Estim Creat Clear Calc ml/min Estimated GFR (59 - ) Glucose (70-99) mg/dL Calculated Osmolality (285-295) mOsm/kg Lactic Acid (0.4-2.0) mmol/L Calcium (8.5-10.1) mg/dL Total Bilirubin (0.00-1.00) mg/dL AST (15-37) U/L ALT (14-59) U/L Alkaline Phosphatase (46-116) U/L Troponin I 8.1 (0.00-60.4) ng/L Total Protein (6.4-8.2) g/dL Albumin (3.4-5.0) g/dL Lipase (16-77) U/L TSH 1.22 (0.36-3.74) uIU/mL Urine Color (Yellow) Urine Appearance (Clear) Urine pH (5.0-8.0) Ur Specific [place] (1.010-1.020) Urine Protein (Negative) Urine Glucose (UA) (Negative) Urine Ketones (Negative) Ur Blood (Man) (Negative) Urine Nitrate (Negative) Urine Bilirubin (Negative) Urine Urobilinogen (0.2-1.0) mg/dL Leukocyte Esterase Rfl (Negative) IZAIAH/UL Urine Test Urine Opiates Screen Negative (Negative) Urine Methadone Screen Negative (Negative) Ur Barbiturates Screen Negative (Negative) Ur Phencyclidine Scrn Negative (Negative) Ur Amphetamine Screen Negative (Negative) U Benzodiazepines Scrn Negative (Negative) Urine Cocaine Screen Negative (Negative) U Cannabinoids Screen Negative (Negative) Influenza A (RT-PCR) (Negative) Influenza B (RT-PCR) (Negative) RSV (RT-PCR) (Negative) SARS-CoV-2 RNA (RT-PCR) (Negative) <Chauncey Cheung MD - Last Filed: 05/01/24 09:30> Imaging Data Radiologist's impression: ITS Impressions Abdomen/Pelvis CT 05/01/24 06:38 IMPRESSION: Findings suggesting a near complete pancolitis, as detailed above. Multiple rounded lucencies within the uterus for which fibroids are suspected. Follow-up pelvic ultrasound is recommended when the patient is clinically able for confirmation. Head CT 05/01/24 07:05 Impression: No acute intracranial hemorrhage or suspicious mass effect. Inflammatory sinus disease, unchanged from 2010. <Michael Mccray MD - Last Filed: 05/01/24 06:16> ITS Impressions Abdomen/Pelvis CT 05/01/24 06:38 IMPRESSION: Findings suggesting a near complete pancolitis, as detailed above. Multiple rounded lucencies within the uterus for which fibroids are suspected. Follow-up pelvic ultrasound is recommended when the patient is clinically able for confirmation. Head CT 05/01/24 07:05 Impression: No acute intracranial hemorrhage or suspicious mass effect. Inflammatory sinus disease, unchanged from 2010. <Chauncey Cheung MD - Last Filed: 05/01/24 09:30> Critical Care Time Critical Care Time Critical Care Time: No <Michael Mccray MD - Last Filed: 05/01/24 06:16> Discharge Plan Discharge Patient Language: Turkish <Michael Mccray MD - Last Filed: 05/01/24 06:16> Prescriptions: No Action thyroid (pork) [[place] Thyroid] 120 mg tablet 60 mg PO DAILY <Michael Mccray MD - Last Filed: 05/01/24 06:16> Follow-up/Referrals: Markus Cueva MD [Primary Care Provider] - <Michael Mccray MD - Last Filed: 05/01/24 06:16>
[2024-05-01] MEDS: ONDANSETRON INJ 4 MG/2 ML VIAL IV PUSH ×2 (04:02→05:23)
[2024-05-01] MEDS: SODIUM CHLORIDE 0.9% IV 1,000 ML 999 ML IV CONT ×3 (04:02→08:55)
--- NOTE | 2024-05-01 04:05 | PC.NURSE ---
ASKED PATIENT IF SHE COULD GIVE URINE SAMPLE. CONTINUES TO HAVE NAUSEA. MEDICATED PER MAR WITH SONAL. WILL GIVE MEDICATION TIME TO WORK AND THEN ASK AGAIN IF SHE CAN GO TO THE BATHROOM
--- NOTE | 2024-05-01 04:09 | PC.NURSE ---
GERRY WITH LAB TO COME DOWN AND DRAW BLOOD CULTURES.
--- NOTE | 2024-05-01 04:14 | PC.NURSE ---
GERRY WITH LAB AT THE BEDSIDE
--- NOTE | 2024-05-01 04:51 | PC.NURSE ---
BLOOD WORK OBTAINED FOR GERRY IN LAB.
--- NOTE | 2024-05-01 04:51 | PC.NURSE ---
PATIENT AMBULATED TO THE BATHROOM WITH SENA JOINER, STAND BY ASSIST FOR URINE SAMPLE
[2024-05-01 05:06] LABS: Basophils Absolute Auto 0.03 K/mm3 (0.00-0.10); Basophils Percent Auto 0.5 % (0.0-1.0); Eosinophils Absolute Auto 0.05 K/mm3 (0.02-0.50); Eosinophils Percent Auto 0.9 % (1.0-6.0); Hematocrit 34.6 % (35.0-49.0); Hemoglobin 11.5 g/dL (12.0-15.0); Immature Granulocyte Absolute 0.01 K/mm3 (0.00-0.00); Immature Granulocyte Percent A 0.2 % (0.0-0.0); Lymphocytes Absolute Auto 0.82 K/mm3 (1.10-4.50); Mean Corpuscular HGB Conc 33.2 g/dL (32-36); Mean Corpuscular Volume 93.3 fL (78.0-102.0); Mean Platelet Volume 9.3 fl (9.2-11.8); Monocytes Absolute Auto 0.35 K/mm3 (0.10-0.90); Monocytes Percent Auto 6.4 % (2.0-11.0); Neutrophils Absolute Auto 4.21 K/mm3 (1.70-7.20); Platelet Count Result 279 K/mm3 (150-420); Red Blood Count 3.71 M/mm3 (4.20-5.40); Red Cell Distribution Width 12.2 % (11.6-14.4); White Blood Count 5.5 K/mm3 (4.8-10.8)
[2024-05-01 05:20] LABS: INR 0.9; Partial Thromboplastin Time 25.6 Sec (23.9-30.70); Prothrombin Time 10.3 Seconds (9.50-12.1)
--- NOTE | 2024-05-01 05:21 | PC.NURSE ---
CAME OUT TO THE DESK, REPORTS THAT PATIENT IS GETTING NAUSEATED AGAIN. SPOKE WITH DR MINAYA. VERBAL ORDER RECEIVED FOR ZOFRAN 4MG IVP
[2024-05-01 05:22] LABS: Add Urine Microscopic? NO; Appearance Urine Clear (Clear); Bilirubin Urine Negative (Negative); Blood Urine Negative (Negative); Color Urine Light Yellow (Yellow); Glucose Urine UA Negative (Negative); Ketones Urine 3+ (Negative); Leukocyte Esterase Ur Negative LEU/UL (Negative); Nitrate Urine Negative (Negative); Protein Urine Negative (Negative); Urobilinogen Urine 0.2 mg/dL (0.2-1.0); pH Urine 6.5 (5.0-8.0)
[2024-05-01 05:24] LABS: Pregnancy On Board Control Positive; Urine Pregnancy Test Negative
[2024-05-01 05:26] LABS: Alanine Aminotransferase 27 U/L (14-59); Albumin Level 3.2 g/dL (3.4-5.0); Alkaline Phosphatase 61 U/L (46-116); Anion Gap 9 mmol/L (4-12); Aspartate Amino Transferase 22 U/L (15-37); Bilirubin,Total 0.2 mg/dL (0.00-1.00); Blood Urea Nitrogen 17 mg/dL (7-18); Calcium 8.2 mg/dL (8.5-10.1); Carbon Dioxide 26 mmol/L (21-32); Chloride 107 mmol/L (98-108); Estimated CRCL calculation 3 ml/min; Estimated Glomerular Filt Rate > 60; Glucose 112 mg/dL (70-99); Lipase 55 U/L (16-77); Osmolality Calculated 296 mOsm/kg (285-295); Potassium 3.9 mmol/L (3.5-5.1); Sodium 142 mmol/L (136-145); Total Protein 6.6 g/dL (6.4-8.2)
[2024-05-01 05:30] LABS: Lactic Acid Reflex 1.6 mmol/L (0.4-2.0)
--- NOTE | 2024-05-01 05:35 | PC.NURSE ---
PATIENT BEING TRANSPORTED TO CT VIA WHEEL CHAIR
--- NOTE | 2024-05-01 05:43 | PC.NURSE ---
PATIENT BEING RETURNED TO ROOM VIA WHEEL CHAIR
[2024-05-01 05:46] LABS: Influenza A QL RT-PCR Negative (Negative); Influenza B QL RT-PCR Negative (Negative); RSV RNA, RT-PCR Negative (Negative); SARS-CoV-2 RNA PCR Negative (Negative)
--- NOTE | 2024-05-01 06:00 | PC.NURSE ---
CAME OUT TO THE DESK AND STATES THAT HIS CLOSED HER EYES THEN WOULDNT RESPOND TO HIM. STARTED TO BREATHE REALLY FAST. THEN PATIENT SAID SHE WAS NAUSEATED AGAIN. WHEN ENTERING THE ROOM, PATIENT IS PALE AND DIAPHORETIC. PLACED PATIENT ON KNITTING MACHINE OPERATOR
--- NOTE | 2024-05-01 06:05 | PC.NURSE ---
AFTER PATIENT HOOKED UP TO [facility] PROCESSING LABOURER, DR MINAYA WAS CALLED TO COME AND ASSESS PATIENT. EKG ORDER WAS PLACED FOR LOW HEART RATE OF 44 ON THE MONITOR
--- NOTE | 2024-05-01 06:07 | ECG_ITS ---
Test Date: 2024-05-01 06:11:40 Measurements Intervals [place] Rate: 50 P: 39 [place]: 154 QRS: 27 QRSD: 79 T: 22 QT: 483 QTc: 442 Interpretive Statements SINUS BRADYCARDIA LOW QRS VOLTAGE IN PRECORDIAL LEADS [QRS DEFLECTION < 1.0 mV IN CHEST LEADS] No previous ECG available for comparison Electronically Signed On 05-01-2024 13:19:47 CDT by Caden Walker M.D.
--- NOTE | 2024-05-01 06:14 | PC.NURSE ---
DR MINAYA AT THE BEDSIDE. EKG WAS GIVEN. WILL HAVE PATIENT REMAIN ON ELECTRONIC ASSEMBLY
[2024-05-01] MEDS: METOCLOPRAMIDE HCL INJ 10 MG/2 ML VIAL IV PUSH (06:29)
--- NOTE | 2024-05-01 06:31 | PC.NURSE ---
OFFERED COOL WASH CLOTHS, PATIENT DOES NOT WANT THAT AT THIS TIME
[2024-05-01 06:46] LABS: D Dimer 0.36 mg/L (0.19-0.50)
[2024-05-01 06:47] LABS: Thyroid Stimulating Hormone 1.22 uIU/mL (0.36-3.74); Troponin I 8.1 ng/L (0.00-60.4)
--- NOTE | 2024-05-01 06:57 | PC.NURSE ---
PATIENT TRANSPORTED TO CT VIA STRETCHER
--- NOTE | 2024-05-01 07:11 | PC.NURSE ---
BEDSIDE REPORT GIVEN TO AHSAN RN. PATIENT IS ALERT AND TALKING. PATIENT COLOR IS PINK AT THIS TIME. PATIENT IS NOT DIAPHORETIC AT THIS TIME.
[2024-05-01] MEDS: SODIUM CHLORIDE 0.9% IV 1,000 ML 125 ML IV CONT (07:20)
[2024-05-01] MEDS: metroNIDAZOLE 500 MG/ISO 100ML 500 MG/100 ML BAG 100 MG IVPB (07:24)
[2024-05-01 07:29] LABS: Amphetamine Screen Urine Negative (Negative); Barbiturate Screen Urine Negative (Negative); Benzodiazepines Screen Urine Negative (Negative); Cannabinoid Screen Urine Negative (Negative); Cocaine Screen Urine Negative (Negative); Methadone Screen Urine Negative (Negative); Opiate Screen Urine Negative (Negative); Phencyclidine Screen Urine Negative (Negative)
--- NOTE | 2024-05-01 10:00 | PC.NURSE ---
600 mL drained from warren
--- NOTE | 2024-05-02 13:26 | PC.NURSE ---
Preliminary blood culture report; no growth to date.
[2024-05-04 00:06] LABS: Glucose Point of Care 134 mg/dl (65-105)
== END 2024-05-01 10:15 | disposition short-term general hospital (02) ==
PROVIDERS: Emergency Medicine; Emergency Provider Emergency Medicine; PCP Internal Medicine
DX: K52.9 Noninfective gastroenteritis and colitis, unspecified (principal); E03.9 Hypothyroidism, unspecified; Z20.822 Contact with and (suspected) exposure to COVID-19; Z79.899 Other long term (current) drug therapy
CPT/HCPCS: 36415; 70450; 74177; 80053; 80307; 81003; 81025; 82948; 83605; 83690; 84443; 84484; 85025; 85380; 85610; 85730; 87040; 87637; 93005; 96361; 96365; 96367; 96375; 99285; J0696; J1836; J2405; J2765; J7030; Q9967